=== PATIENT | male | born 1960 | race Caucasian/White ===

== ENCOUNTER 2024-11-10 21:15 | Inpatient (IN) | payer MEDICARE, OTHER ==
[~2024-11-10] VITALS: Ht 182.9 cm; Wt 85.3 kg
[2024-11-10] MEDS ORDERED: diphenhydrAMINE 50 MG/1 ML VIAL ONE (22:18)
[2024-11-10] MEDS ORDERED: HALOPERIDOL LACTATE 5 MG/1 ML VIAL ONE (22:18)
[2024-11-10] MEDS ORDERED: LORAZEPAM 2 MG/1 ML VIAL ONE (22:19)
[2024-11-10] MEDS ORDERED: CHOL10005 PO (22:22)
[2024-11-10] MEDS ORDERED: ASPI81TA31 PO (22:22)
[2024-11-10] MEDS ORDERED: LOSA25TA27 PO (22:22)
[2024-11-10] MEDS ORDERED: HALO100A2 IM (22:22)
[2024-11-10] MEDS ORDERED: ATOR40TA PO (22:22)
[2024-11-10] MEDS ORDERED: OXCA150T5 PO (22:22)
[2024-11-10] MEDS ORDERED: LEVO150T8 PO (22:22)
[2024-11-10] MEDS ORDERED: FURO40TA5 PO (22:22)
[2024-11-10] MEDS ORDERED: CLOZ200T24 PO (22:22)
[2024-11-10] MEDS: diphenhydrAMINE 50 MG/1 ML VIAL IM ONE (22:25)
[2024-11-10] MEDS: LORAZEPAM 2 MG/1 ML VIAL IM ONE (22:25)
[2024-11-10] MEDS: HALOPERIDOL LACTATE 5 MG/1 ML VIAL IM ONE (22:25)
[2024-11-11] MEDS ORDERED: LORAZEPAM 1 MG TABLET PO PRN (00:15)
[2024-11-11] MEDS ORDERED: ZOLPIDEM 5 MG TABLET PO PRN ×2 (00:15)
[2024-11-11] MEDS ORDERED: MAG HYDROX/AL HYDROX/SIMETH 30 ML LIQUID UDC PO PRN (00:15)
[2024-11-11] MEDS ORDERED: MAGNESIUM HYDROXIDE 30 ML LIQUID UDC PO PRN (00:15)
[2024-11-11] MEDS ORDERED: ACETAMINOPHEN 325 MG TABLET PO PRN (00:15)
[2024-11-11] MEDS: BLOOD SUGAR DIAGNOSTIC 1 EACH STRIP VI ONE (00:32)
[2024-11-11] MEDS ORDERED: RISP1TAB7 PO (03:35)
[2024-11-11] MEDS ORDERED: ENOX40DI SQ (03:35)
[2024-11-11] MEDS ORDERED: CARV6.252 PO (03:35)
[2024-11-11] MEDS ORDERED: QUET400T PO (03:35)
[2024-11-11] MEDS ORDERED: METF-440 PO (03:35)
[2024-11-11] MEDS ORDERED: AMLO-212 PO (03:35)
[2024-11-11] MEDS ORDERED: OXCA300T4 PO (03:35)
[2024-11-11] MEDS ORDERED: ACET325T53 PO (09:01)
[2024-11-11] MEDS ORDERED: ASPI-1169 PO (09:01)
[2024-11-11] MEDS ORDERED: DIPH50SY IM (09:04)
[2024-11-11] MEDS ORDERED: OXCA150T13 PO (09:15)
[2024-11-11] MEDS ORDERED: CHOL100045 PO (09:16)
[2024-11-11] MEDS ORDERED: INSULIN REGULAR, HUMAN 1000 UNIT/10 ML VIAL SQ PRN (10:15)
[2024-11-11] MEDS ORDERED: DEXTROSE 50% 50 ML DISP.SYRIN IV PRN (10:15)
[2024-11-11] MEDS: BLOOD SUGAR DIAGNOSTIC 1 EACH STRIP VI SCH (11:29)
[2024-11-11] MEDS: CHOLECALCIFEROL 1,000 UNIT TABLET PO SCH (12:00)
[2024-11-11] MEDS: LOSARTAN POTASSIUM 25 MG TABLET PO SCH (12:00)
[2024-11-11] MEDS: ASPIRIN 81 MG TAB.CHEW PO SCH (12:00)
[2024-11-11] MEDS: FUROSEMIDE 40 MG TABLET PO SCH (12:00)
[2024-11-11] MEDS: LEVOTHYROXINE SODIUM 150 MCG TABLET PO SCH (13:00)
[2024-11-11 15:55] VITALS: BP 129/78; TEMP 98.2; O2SAT 96
[2024-11-11 19:49] VITALS: BP 120/70; TEMP 98.2; O2SAT 97
[2024-11-11] MEDS: ATORVASTATIN 40 MG TABLET PO SCH (20:40)
[2024-11-12] MEDS: HALOPERIDOL LACTATE 5 MG/1 ML VIAL IM ONE (07:39)
[2024-11-12] MEDS: diphenhydrAMINE 50 MG/1 ML VIAL IM ONE (07:39)
[2024-11-12] MEDS: LORAZEPAM 2 MG/1 ML VIAL IM ONE (07:39)
[2024-11-12] MEDS: HALOPERIDOL 5 MG TABLET PO SCH (10:00)
[2024-11-12] MEDS: OXCARBAZEPINE 150 MG TABLET PO SCH (10:00)
[2024-11-12] MEDS: CLOZAPINE 100 MG TABLET PO SCH (10:24)
[2024-11-14] MEDS: LORAZEPAM 2 MG/1 ML VIAL IM ONE (00:47)
[2024-11-14] MEDS: diphenhydrAMINE 50 MG/1 ML VIAL IM ONE (00:49)
[2024-11-14] MEDS: HALOPERIDOL LACTATE 5 MG/1 ML VIAL IM ONE (00:49)
[2024-11-14] MEDS: MUPIROCIN 2% OINT 22 GM TUBE TP SCH (08:44)
[2024-11-14] MEDS: DOXYCYCLINE HYCLATE 100 MG TABLET PO SCH (09:00)
[2024-11-14 09:54] LABS: BASOPHILS % (AUTO) 0.9 % (0.0-2.0); EOSINOPHILS # (AUTO) 0.1 K/uL (0.0-0.7); EOSINOPHILS % (AUTO) 2.6 % (0.0-7.0); HEMATOCRIT 38.6 % (36.7-47.1); HEMOGLOBIN 13.1 g/dL (12.5-16.3); LYMPHOCYTES # (AUTO) 1.4 K/uL (0.8-4.8); LYMPHOCYTES % (AUTO) 26.6 % (20.5-51.5); MEAN CORPUSCULAR HEMOGLOBIN 30.4 uug (23.8-33.4); MEAN CORPUSCULAR HGB CONC 34 g/dL (32.5-36.3); MEAN CORPUSCULAR VOLUME 89.6 fL (73.0-96.2); MONOCYTES # (AUTO) 0.8 K/uL (0.1-1.30); MONOCYTES % (AUTO) 14.6 % (0.0-11.0); NEUTROPHILS # (AUTO) 2.9 K/uL (1.8-8.9); NEUTROPHILS % (AUTO) 55.3 % (38.5-71.5); PLATELET COUNT (AUTO) 307 K/uL (152-348); RED BLOOD CELL COUNT(AUTO) 4.31 MIL/uL (4.06-5.63); RED CELL DISTRIBUTION WIDTH 15.2 % (12.1-16.2); WHITE BLOOD COUNT (AUTO) 5.3 K/uL (3.6-10.2)
[2024-11-14 09:55] LABS: DIFFERENTIAL COMMENT 1
[2024-11-14 10:08] LABS: CALCIUM 8.9 mg/dL (8.5-10.1)
[2024-11-14] MEDS ORDERED: TEMAZEPAM 15 MG CAPSULE PO PRN (13:45)
[2024-11-14] MEDS: GLUCERNA SHAKE 237 ML CAN PO SCH (16:40)
[2024-11-14] MEDS ORDERED: HALOPERIDOL 5 MG TABLET PO PRN (17:30)
[2024-11-14] MEDS: HALOPERIDOL LACTATE 5 MG/1 ML VIAL IM PRN (18:24)
[2024-11-14] MEDS: LORAZEPAM 1 MG TABLET PO PRN (20:27)
[2024-11-15] MEDS: OLANZAPINE 10 MG VIAL IM PRN (09:35)
[2024-11-15 16:10] VITALS: BP 135/77; TEMP 98; O2SAT 100
[2024-11-15 19:35] VITALS: BP 110/79; TEMP 98.3; O2SAT 95
[2024-11-16 07:53] VITALS: BP 152/87; TEMP 98.2; O2SAT 99
[2024-11-16] MEDS ORDERED: LORAZEPAM 2 MG/1 ML VIAL IV PRN (14:15)
[2024-11-16] MEDS ORDERED: diphenhydrAMINE 50 MG/1 ML VIAL IV ONE (14:15)
[2024-11-16] MEDS: LORAZEPAM 2 MG/1 ML VIAL IM ONE (15:18)
[2024-11-16] MEDS: diphenhydrAMINE 50 MG/1 ML VIAL IM ONE (15:19)
[2024-11-16] MEDS: HALOPERIDOL LACTATE 5 MG/1 ML VIAL IM ONE (15:19)
[2024-11-16 19:54] VITALS: BP 144/88; TEMP 97.9; O2SAT 95
[2024-11-18 08:46] VITALS: BP 154/95; TEMP 98.2; O2SAT 99
[2024-11-18] MEDS: HALOPERIDOL DECANOATE 50 MG/1 ML AMPUL IM ONE (13:45)
[2024-11-18 16:56] VITALS: BP 126/85; TEMP 98.6; O2SAT 99
[2024-11-19 19:35] VITALS: BP 132/75; TEMP 98.2; O2SAT 97
[2024-11-20 19:57] VITALS: BP 139/77; TEMP 98.6; O2SAT 97
[2024-11-20] MEDS: CLOZAPINE 25 MG TABLET PO SCH (21:00)
[2024-11-21 08:03] VITALS: TEMP 98
[2024-11-21 16:10] VITALS: TEMP 98.8
[2024-11-21 20:17] VITALS: BP 145/80; TEMP 96.9
[2024-11-22 08:04] VITALS: BP 119/68; TEMP 98; O2SAT 98
[2024-11-22 17:02] VITALS: BP 122/77; TEMP 98; O2SAT 98
[2024-11-22] MEDS: PALIPERIDONE PALMITATE 234 MG/1.5 ML SYRINGE IM ONE (19:50)
[2024-11-23 07:21] LABS: BASOPHILS % (AUTO) 0.5 % (0.0-2.0); EOSINOPHILS # (AUTO) 0.3 K/uL (0.0-0.7); EOSINOPHILS % (AUTO) 4.3 % (0.0-7.0); HEMATOCRIT 37.6 % (36.7-47.1); HEMOGLOBIN 12.7 g/dL (12.5-16.3); LYMPHOCYTES # (AUTO) 1.6 K/uL (0.8-4.8); LYMPHOCYTES % (AUTO) 19.9 % (20.5-51.5); MEAN CORPUSCULAR HEMOGLOBIN 30.4 uug (23.8-33.4); MEAN CORPUSCULAR HGB CONC 34 g/dL (32.5-36.3); MEAN CORPUSCULAR VOLUME 89.7 fL (73.0-96.2); MONOCYTES # (AUTO) 0.7 K/uL (0.1-1.30); MONOCYTES % (AUTO) 8.4 % (0.0-11.0); NEUTROPHILS # (AUTO) 5.5 K/uL (1.8-8.9); NEUTROPHILS % (AUTO) 66.9 % (38.5-71.5); PLATELET COUNT (AUTO) 255 K/uL (152-348); RED BLOOD CELL COUNT(AUTO) 4.19 MIL/uL (4.06-5.63); RED CELL DISTRIBUTION WIDTH 15.1 % (12.1-16.2); WHITE BLOOD COUNT (AUTO) 8.2 K/uL (3.6-10.2)
[2024-11-23 07:25] LABS: DIFFERENTIAL COMMENT 1
[2024-11-23 08:04] VITALS: BP 150/86; TEMP 98; O2SAT 96
[2024-11-23] MEDS ORDERED: OLANZAPINE 10 MG VIAL IM PRN (08:49)
[2024-11-23] MEDS: HALOPERIDOL LACTATE 5 MG/1 ML VIAL IM PRN ×2 (08:52→17:42)
[2024-11-23] MEDS ORDERED: PALIPERIDONE PALMITATE 234 MG/1.5 ML SYRINGE IM ONE ×2 (12:00→13:00)
[2024-11-23 15:57] VITALS: BP 142/84; TEMP 98; O2SAT 98
[2024-11-23 20:00] VITALS: BP 149/85; TEMP 98.6; O2SAT 92
[2024-11-23] MEDS: OLANZAPINE 10 MG VIAL IM PRN (20:51)
[2024-11-24 07:54] VITALS: BP 143/82; TEMP 98; O2SAT 96
[2024-11-24 15:30] VITALS: BP 139/80; TEMP 98; O2SAT 94
[2024-11-24 20:00] VITALS: BP 139/74; TEMP 98; O2SAT 93
[2024-11-25 08:04] VITALS: BP 115/73; TEMP 98.1; O2SAT 98
[2024-11-25 08:17] VITALS: BP 115/73
[2024-12-16] MEDS ORDERED: HALOPERIDOL DECANOATE 50 MG/1 ML AMPUL IM SCH (09:00)
== END 2024-11-25 14:50 | DRG 885 ==
LOC: ER 21:29 → GPS 23:58
PROVIDERS: ADMIT Psychiatry & Neurology Psychiatry; ATTEND Nurse Practitioner Acute Care
DX: F25.0 Schizoaffective disorder, bipolar type (principal); L03.116 Cellulitis of left lower limb; L03.115 Cellulitis of right lower limb; E87.0 Hyperosmolality and hypernatremia; E03.9 Hypothyroidism, unspecified; Z91.199 Patient's noncompliance with other medical treatment and regimen due to unspecified reason; Z79.82 Long term (current) use of aspirin; Z79.899 Other long term (current) drug therapy; Z79.890 Hormone replacement therapy; E78.5 Hyperlipidemia, unspecified; I25.10 Atherosclerotic heart disease of native coronary artery without angina pectoris; I10 Essential (primary) hypertension; Z88.8 Allergy status to other drugs, medicaments and biological substances; Z91.012 Allergy to eggs; E11.9 Type 2 diabetes mellitus without complications; S81.802A Unspecified open wound, left lower leg, initial encounter; X58.XXXA Exposure to other specified factors, initial encounter; Y93.89 Activity, other specified; Y92.89 Other specified places as the place of occurrence of the external cause; E86.1 Hypovolemia; Z91.148 Patient's other noncompliance with medication regimen for other reason
CPT/HCPCS: 36415; 85025; J1200; J1630; J1631; J1815; J2060; J2358; J2426